=== PATIENT | female | born 1975 | race Caucasian/White ===

== ENCOUNTER 2017-04-01 06:48 | Day surgery (SDC) | payer SELFPAY ==
[~2017-04-01 06:48] MED LIST: DOXYCYCLINE HYCLATE 100 MG TABLET PO PRN; RINGERS SOLUTION,LACTATED 1,000 ML IV PRN
--- OUTSIDE RECORDS SUMMARY | 2017-04-01 06:51 | XMS REPORT | Continuity of Care Document ---
:1975 Author Organization [facility] ([facility]) Address [address] [place] [address] Phone [phone] Support Name Relationship Address Phone Unavailable Unavailable [address] [phone] [place] [address] Care Team Providers Name Role Phone [facility] [id number] Primary Care Provider [phone] Source Comments This disclosure is being made pursuant to the Care Everywhere program, applicable federal and state laws, and may not contain all informaitonavailable regarding this patient.[facility] ([facility]) Active Allergies and Adverse Reactions No Known Allergies Current Medications No known medications Active Problems Not on file Social History Tobacco Use Types Packs/Day Years Used Date Never Assessed Last Filed Vital Signs Vital Sign Reading Time Taken Blood Pressure 127/79 06/10/2010 8:00 AM CDT Pulse 86 06/10/2010 8:00 AM CDT Temperature 36.5 C (97.7 F) 06/10/2010 8:00 AM CDT Respiratory Rate 16 06/10/2010 8:00 AM CDT Height 1.676 m (5' 6") 06/08/2010 11:26 AM CDT Weight 56.7 kg (125 lb) 06/08/2010 11:26 AM CDT Body Mass Index 20.19 06/08/2010 11:26 AM CDT Oxygen Saturation 94% 06/10/2010 8:00 AM CDT Plan of Care Health Maintenance Due Date Last Done Comments Hepatitis B Vaccine (1 of 3 - Primary Series) 1975 Tdap Vaccine 1985 Lipid Disorder Screening 1992 MMR Vaccine 1992 Td Vaccine 1992 Cervical Cancer Screening 2004 Mammogram 2014 Influenza Vaccine: Seasonal (#1) 05/19/2016 Results from Last 3 Months Not on file
--- OUTSIDE RECORDS SUMMARY | 2017-04-01 06:51 | XMS REPORT | Continuity of Care Document ---
:1975 Author Organization [employer] [place] [address] Care Team Providers Name Role Phone Unavailable Primary Care Provider Unavailable Source Comments This disclosure is being made pursuant to the Tier 3 program and maynot contain all information available regarding this patient.[employer] [facility] Active Allergies and Adverse Reactions Not on File Current Medications Be aware that medications may not be up to date as of this document. Alwaysverify current medications with the patient. Not on file Active Problems Not on file Social History Tobacco Use Types Packs/Day Years Used Date Never Assessed Plan of Care Health Maintenance Due Date Last Done Comments Retired-Pertussis Vaccine Adult 1993 Retired-Tetanus Vaccine Adult 1993 Pap Smear 1995 Mammogram 2014 Retired-INFLUENZA VACCINE 06/19/2015 Results from Last 3 Months Not on file
[2017-04-01 07:15] LABS: Hematocrit 39.3 % (37.0-47.0); Hemoglobin 12.5 gm/dL (12.5-16.0); Mean Cell Volume 87.5 fl (78-100); Mean Corpuscular Hemoglobin 27.8 pg (27-31); Mean Corpuscular Hgb Conc 31.8 g/dl (32-36); Mean Platelet Volume 10.6 fl (6.0-9.5); Neutrophil # 2.4 K/mm3 (1.3-6.0); Platelet Count 227 K/mm3 (150-450); Red Blood Count 4.49 M/mm3 (4.2-5.4); Red Cell Distribution Width 14.2 % (11.5-14.0); White Blood Count 4.8 K/mm3 (4.0-10.5)
[2017-04-01] MEDS ORDERED: RINGERS SOLUTION,LACTATED 1,000 ML IV ONE (07:31)
[2017-04-01] MEDS ORDERED: LIDOCAINE HCL/EPINEPHRINE 30 ML VIAL IJ ONE (08:00)
--- NOTE | 2017-04-01 08:52 | OR ---
Operative Report - Dictated Report Narrative: DATE OF PROCEDURE: 04/01/2017 INDICATION: 42 year old with 11 week embryonic demise PREOPERATIVE DIAGNOSIS: 11 week embryonic demise/missed AB POSTOPERATIVE DIAGNOSIS: Same PROCEDURE: Dilation with suction curettage SURGEON: Paula Zuleta D.O. MICROBIOLOGY LABORATORY MANAGER: None ANESTHESIA: IV sedation with local paracervical block ESTIMATED BLOOD LOSS: 100 mL URINE OUTPUT: 200 mL FLUID REPLACEMENT: 400 mL FINDINGS: 13 week size uterus with large amount of products of conception and moderately heavy immediate post procedure bleeding SPECIMEN(S): Products of conception TECHNIQUE: Patient was taken to the operating room and placed in dorsal lithotomy position after adequate IV sedation. The anterior lip of the cervix was grasped with a long Allis clamp and paracervical block was given using 1% lidocaine with epinephrine. Using a combination of Luna and Hegar dilators, the cervix was gently dilated to accommodate a 11 mm suction curette. A 11 mm curved suction curet was inserted through the cervical canal into the uterine cavity. Suction was applied and the products of conception were removed. Brisk bleeding was encountered. A #4 curet was inserted gently field within the uterine cavity to make sure all products of conception were removed. An additional 10 mL of 1% lidocaine was then injected within the cervical canal and uterosacral ligament insertions. Bleeding was then minimal. All instruments were removed from the cervix and vagina. Sponge, lap, instrument, needle count correct x 2. DISPOSITION: The patient was transferred to postanesthesia care unit in good condition.
[2017-04-01] MEDS ORDERED: MORPHINE SULFATE 2 MG/ML DISP.SYRIN IV PRN (08:56)
[2017-04-01] MEDS ORDERED: IBUPROFEN 800 MG TABLET PO PRN (08:57)
[2017-04-01] MEDS ORDERED: oxyCODONE HCL/ACETAMINOPHEN 1 TAB TABLET PO PRN (08:57)
[2017-04-01] MEDS ORDERED: MISOPROSTOL 200 MCG TABLET PO ONE (10:30)
[2017-04-01 16:54] VITALS: BP 110/64
[2017-04-02 12:11] LABS: Hep B Surface Antigen Confirm DNR
[2017-04-02 12:31] LABS: Hepatitis B Surface Antigen NON-REACTIVE (NON-REACTIVE)
== END 2017-04-01 06:49 | disposition home or self-care (01) ==
LOC: AMB 06:48
PROVIDERS: ATTEND Obstetrics & Gynecology
PROC: 10D17ZZ Extraction of Products of Conception, Retained, Via Natural or Artificial Opening (ICD-10-PCS; principal; 2017-04-01 07:55)
DX: O02.1 Missed abortion (principal); F17.200 Nicotine dependence, unspecified, uncomplicated; Z68.25 Body mass index [BMI] 25.0-25.9, adult

== ENCOUNTER 2017-04-06 22:17 | Emergency (ER) | payer OTHER ==
--- NOTE | 2017-04-06 23:19 | ERNOTE ---
ER Female HPI Date of Service: 04/06/17 Stated Complaint: BLEEDING Time Seen by Provider: 04/06/17 23:17 Source: patient Exam Limitations: no limitations Immunizations: IMMUNIZATION HX Immunizations Up to Date Yes History of Influenza Vaccine No Hx Pneumococcal Vaccination No Allergies/Adverse Reactions: Allergies No Known Allergies Allergy (Verified 04/01/17 07:19) Home Medications: HOME MEDICATIONS Docusate Sodium [Colace] 100 mg PO BID 03/31/17 [Last Taken Unknown] Vit#96/Ferrous Fum/FA [ S] 1 tab PO DAILY 03/31/17 [Last Taken Unknown] oxyCODONE HCL/ACETAMINOPHEN [Percocet 5 MG/325 MG] 1 tab PO Q4H PRN #20 tablet 04/01/17 [Last Taken Unknown] - History of Present Illness Narrative: PT COMES FROM [facility] STATING THAT SHE HAS VAGINAL BLEEDING 1 WEEK AFTER HAVING D & C. PT IS G9 P 5 WITH RECENT MISSED THAT RESULTED IN D & C ON 01 APRIL. SHE SAYS THAT SINCE 1799 SHE HAD LARGE CLOTS X 3 IN DIAPERS THAT SHE WAS USING AT [facility] . SHE STATES THAT DR ZAMORA HAD TOLD HER SHE MAY NEED A HYSTERECTOMY. Review of Systems - Review of Systems Constitutional: Present: See HPI Genitourinary: Present: See HPI, other - VAGINAL BLEEDING AFTER D & C. All Other Systems: All systems neg except as marked - Patient's Past Medical History Patient History - Medical: Anemia, Other Patient History - Cardiac/Respiratory: Other Patient History - Cancer: No Hx of Cancer Patient History - Surgical Procedures: Cholecystectomy, D & C, Other Patient History - Other: None - Family History Grandfather-Paternal Family History - Medical: No pertinent hx Family History - Cardiac/Respiratory: No pertinent hx Family History - Cancer: Lung - Social History Living Situations: other Abuse History: No History of abuse Psych History: No pertinent hx Smoking Status: Current every day smoker Patient requests Smoking Cessation Consult: No Initiate information on Smoking Cessation: No Alcohol Use: none Drug Use: other - Immunizations Immunizations Up to Date: Yes Hx Pneumococcal Vaccination: No History of Influenza Vaccine: No Physical Exam - Physical Exam General Appearance: Present: wd/wn, alert, no apparent distress Gastrointestinal/Abdominal: Present: nontender Skin Exam: Present: normal color Pelvic Exam: Present: active bleeding - ONLY MILD BLOOD , EASILY BLOTTED BY 2 LARGE SWABS. NO TEARS . NO CLOTS. ED Progress - Results and Orders Patient's Lab Results:: I have reviewed the patient's lab results. Results and Orders: HGB = 10.6 , WAS 12.5 ON 14TH . PT /INR = NORMAL - Vital Signs Patient's Vital Signs:: I have reviewed the patient's vital signs. Vital Signs: Vital Signs 04/06/17 22:25 Temperature 36.7 C Pulse Rate 74 Respiratory 16 Rate Blood Pressure 132/103 O2 Sat by Pulse 97 Oximetry - CT/Ultrasound CT/Ultrasound Narrative: PELVIC US / ARGUS = "1.9 HETEROGENEOUS THICKENED ENDOMETRIAL STRIPE WITH NO ELEVATION OF BLOOD FLOW THAT MAY BE RETAINED HEMORRHAGE BUT CAN NO EXCLUDE RETAINED PARTS OF CONCEPTION." - Progress/Reassessment Chief Complaint: Genitourinary Problem Plan - Plan Plan: D/W DR DAVENPORT , OB CIGARETTE AND FILTER CHIEF INSPECTOR , AND SHE SUGGESTS AN US TO LOOK FOR RETAINED PRODUCTS. THE US GIVES SUGGESTION THAT THERE MAY STILL BE RETAINED PRODUCTS SO SHE IS GOING TO COME IN TO SEE THE PT. DR Evette DAVENPORT CAME IN TO EXAMINE PT AND IS GOING TO LET HER GO BACK TO [facility] AFTER A METHERGAN IM AND WITH PO 0.2 MG X 10 . PT . IS TO CALL THE OFFICE AND GET APPOINTMENT FOR RECHECK WITH DR ZULETA IN ONE WEEK. Departure Clinical Impression: Postoperative vaginal bleeding following genitourinary procedure - Departure Disposition: Home Follow Up Needed Condition: Good Instructions: Menorrhagia, [id number] Additional Instructions: FOLLOW UP BY CALLING THE OFFICE TO GET RECHECKED IN 1 WEEK. TAKE THE METHERGEN DIRECTED BY DR DAVENPORT. Referrals: Devin Zuleta DO [Primary Care Provider] -
[2017-04-06 23:30] LABS: Hematocrit 33.4 % (37.0-47.0); Hemoglobin 10.6 gm/dL (12.5-16.0); Mean Cell Volume 89.3 fl (78-100); Mean Corpuscular Hemoglobin 28.3 pg (27-31); Mean Corpuscular Hgb Conc 31.7 g/dl (32-36); Mean Platelet Volume 9.9 fl (6.0-9.5); Neutrophil # 4.2 K/mm3 (1.3-6.0); Neutrophil % 63.7 % (42-75.0); Platelet Count 206 K/mm3 (150-450); Red Blood Count 3.74 M/mm3 (4.2-5.4); Red Cell Distribution Width 14.1 % (11.5-14.0); White Blood Count 6.6 K/mm3 (4.0-10.5)
[2017-04-06 23:40] LABS: Prothrombin Time (Patient) 10.2 Seconds (9.4-11.4)
--- OUTSIDE RECORDS SUMMARY | 2017-04-06 23:40 | XMS REPORT | Continuity of Care Document ---
:1975 Author Organization [facility] ([facility]) Address [address] [place] [address] Phone [phone] Support Name Relationship Address Phone Unavailable Unavailable [address] [phone] [place] [address] Care Team Providers Name Role Phone [facility] [id number] Primary Care Provider [phone] Source Comments This disclosure is being made pursuant to the Care Everywhere program, applicable federal and state laws, and may not contain all informaitonavailable regarding this patient.[facility] ([facility]) Active Allergies and Adverse Reactions No Known [...]
--- OUTSIDE RECORDS SUMMARY | 2017-04-06 23:40 | XMS REPORT | Continuity of Care Document ---
:1975 Author Organization [facility] Address [place] [address] Care Team Providers Name Role Phone Unavailable Primary Care Provider Unavailable Source Comments This disclosure is being made pursuant to the [place] program and maynot contain all information available regarding this patient.[facility] Active Allergies and Adverse Reactions Not on [...]
[2017-04-06 23:42] LABS: INR 0.98 INR (0.90-1.10)
[2017-04-07] MEDS ORDERED: METHYLERGONOVINE MALEATE 0.2 MG/ML AMPUL IM ONE (03:21)
--- NOTE | 2017-04-07 03:32 | PN ---
Progess Note - Interim Narrative: 04/07/17 03:27 42y/o female patient of Dr. Zuleta presented to ER earlier this evening c/o heavy vaginal bleeding with cramping between 1800 and 2200, soaking 3 pads. Since arrival bleeding has been minimal. She has a history of undergoing suction D&C on 04/01/[address] Zuleta for 11 week demise. His operative report notes fairly brisk bleeding following the procedure and patient was released on p.o. misoprostol three times daily for 2 days. She is currently incarcerated for probation violation and this was administered in penitentiary. Other meds include [place], motrin and bactrim. O: P60-70's BP BP 107/71, T37.6 H&H 10.6/33.3 In general this is a well developed white female in no distress. Skin is warm and dry. Abdomen is soft and nontender. Speculum exam shows small amt of blood from cervical os with no heavy bleeding and oss is closed. Uterus is 6-8 week size and globular. Sono was obtained and there is no free fluid or adnexal masses. The endometrial stripe is heterogeneous and thickened at 1.9cm with no flow. This could represent a small amt retained tissue but more likely is clotted blood. A; Heavy vaginal bleeding 5 days s/p D&C for demise, now resolved. Hemodynamically stable. P; One dose of methergine 02.mg IM here in ER. RX for methergine 0.2mg p.o x3 days. F/u with DR. Zuleta in office within one week. Return if recurrence of heavy bleeding. 04/07/17 03:33 04/07/17 03:33
[2017-04-07] MEDS ORDERED: METHYLERGONOVINE MALEATE 0.2 MG/ML AMPUL ONE (03:38)
[2017-04-07 03:47] VITALS: BP 127/74
== END 2017-04-07 04:02 ==
LOC: ER 22:17
DX: N99.820 Postprocedural hemorrhage of a genitourinary system organ or structure following a genitourinary system procedure (principal); F17.200 Nicotine dependence, unspecified, uncomplicated

== ENCOUNTER 2020-05-16 02:38 | Inpatient (IN) ==
[2020-05-16] MEDS ORDERED: ONDANSETRON HCL/PF 2 MG/ML VIAL IV ONE (03:15)
[2020-05-16] MEDS ORDERED: NORMAL SALINE 1,000 ML IV ONE (03:16)
[2020-05-16 03:19] LABS: Hematocrit 39.4 % (37.0-47.0); Hemoglobin 11.7 gm/dL (12.5-16.0); Mean Cell Volume 87.8 fl (78-100); Mean Corpuscular Hemoglobin 26.1 pg (27-31); Mean Corpuscular Hgb Conc 29.7 g/dl (32-36); Mean Platelet Volume 10.1 fl (8-12.5); Neutrophil % 64.2 % (42-75.0); Platelet Count 287 K/mm3 (150-450); Red Blood Count 4.49 M/mm3 (4.2-5.4); Red Cell Distribution Width 15.9 % (11.5-14.0); White Blood Count 6.2 K/mm3 (4.0-10.5)
--- NOTE | 2020-05-16 03:20 | ERNOTE ---
Abdominal HPI - General Chief Complaint: Abdominal Pain Time Seen by Provider: 05/16/20 03:11 Source: patient Exam Limitations: no limitations - Immun/Allergies/Home Medications Immunizatons: IMMUNIZATION HX Immunizations Up to Date Yes History of Influenza Vaccine Yes Hx Pneumococcal Vaccination No Allergies/Adverse Reactions: Allergies No Known Allergies Allergy (Verified 05/16/20 03:00) - History of Present Illness Narrative: Patient states approximately 1400 yesterday afternoon she began having some epigastric abdominal pain after eating some fajitas. She thought it would go away she laid down she did other things sparse positioning and activity and to continue to bother her and tonight kept her up from sleeping and began to radiate around her her back like a band. Timing: getting worse Quality: moderate, fullness Review of Systems - Review of Systems Constitutional: Absent: recent illness Respiratory: Absent: shortness of breath, cough Cardiology: Absent: chest pain Gastrointestinal/Abdominal: Present: See HPI, nausea, abdominal pain. Absent: vomiting, diarrhea Musculoskeletal: Present: See HPI, back pain Skin: Absent: rash Endocrine: Absent: excessive sweating Medical History (Last Reviewed 05/16/20 @ 03:19 by Osbaldo Benitez DO) Cholelithiasis Miscarriage Surgical History: Surgical History (Last Reviewed 05/16/20 @ 03:19 by Osbaldo Benitez DO) Hx laparoscopic cholecystectomy Hx of dilation and curettage Social History: (Last Reviewed 05/16/20 @ 03:19 by Osbaldo Benitez DO) Social History: adopted: No foster care: No lives independently: Yes number of children: 1 Tobacco: Smoking Status: Current every day smoker Physical Exam - Physical Exam General Appearance: Present: wd/wn, alert, mild distress Head Exam: Present: normal inspection, no evidence of injury Neck: Present: normal inspection, nontender, supple Respiratory: Present: no respiratory distress, no accessory muscle use, chest nontender, lungs clear Cardiovascular/Chest: Present: regular rate, rhythm, no murmur Gastrointestinal/Abdominal: Present: normal bowel sounds, soft, tenderness - Mid right abdomen to right upper quadrant and mid central abdomen to epigastric. Absent: distended, guarding, rebound Back Exam: Present: normal inspection, normal range of motion, no CVA tenderness Extremity Exam: Present: normal inspection, normal range of motion, no edema Neurological Exam: Present: alert, oriented, normal mood/affect, no motor/sensory deficits Skin Exam: Present: normal color, warm/dry Lymphatic Exam: Present: no adenopathy Progress - Results and Orders Patient's Lab Results:: I have reviewed the patient's lab results. Results and Orders: Laboratory Tests 05/16/20 05/16/20 05/16/20 03:15 03:16 03:50 WBC 6.2 Hgb 11.7 L Hct 39.4 Plt Count 287 Sodium 140 Potassium 3.9 Chloride 105 Carbon Dioxide 26.1 BUN 13 Creatinine 0.73 Random Glucose 112 H Calcium 8.5 Total Bilirubin 0.6 AST 21 ALT 25 Amylase 696 H Lipase 6967 H Urine Color Yellow Urine Appearance Clear Ur Specific [place] 1.025 Urine Blood Negative Urine Nitrate Negative Ur Leukocyte Esterase Negative - Vital Signs Patient's Vital Signs:: I have reviewed the patient's vital signs. Vital Signs: Vital Signs 05/16/20 02:44 Temperature 36.4 C Pulse Rate 77 Respiratory Rate 18 Blood Pressure 175/94 H O2 Sat by Pulse Oximetry 98 - X-Ray X-Ray #1 X-Ray: abdomen Interpretation: Interp. by me X-ray Comments: Moderate stool retention. No air-fluid levels, no free air. No evidence of obstruction - Progress/Reassessment Chief Complaint: Abdominal Pain Progress Note-Subjective: 05/16/20 07:[address] Fox he agrees with inpatient admission IV fluids and pain control and antinausea medications. Departure Clinical Impression: Pancreatitis Qualifiers: Chronicity: acute Pancreatitis type: unspecified pancreatitis type Acute pancreatitis complication: no infection or necrosis Qualified Code(s): K85.90 - Acute pancreatitis without necrosis or infection, unspecified - Departure Disposition: Still a patient Condition: Good Referrals: Devin Zuleta DO [Primary Care Provider] -
[2020-05-16] MEDS ORDERED: LIDOCAINE HCL 15 ML UDC MM ONE (03:25)
[2020-05-16] MEDS ORDERED: MAG HYDROX/ALUMINUM HYD/SIMETH 30 ML UDC PO ONE (03:25)
[2020-05-16] MEDS ORDERED: SUCRALFATE 1 G/10 ML UDC PO ONE (03:25)
[2020-05-16 03:31] LABS: Albumin * 3.6 gm/dl (3.4-5.0); Anion Gap 12.8 mmol/L (6.8-13.8); BUN/Creatinine Ratio 17.8 (9.0-21.6); Bilirubin, Total 0.6 mg/dL (0.0-1.1); Ca. Corrected For Albumin 8.5 mg/dL (8.4-10.2); Calcium * 8.5 mg/dL (7.9-10.9); Carbon Dioxide 26.1 mmol/L (24-32.6); Potassium 3.9 mmol/L (3.4-4.6); Total Protein 6.7 gm/dL (6.2-8.2)
[2020-05-16] MEDS ORDERED: DIATRIZOATE MEGLUMINE, SODIUM 30 ML BTL PO ONE (03:53)
[2020-05-16] MEDS ORDERED: MORPHINE SULFATE 2 MG/ML DISP.SYRIN IV ONE (03:56)
[2020-05-16 04:00] LABS: Urine Bilirubin Negative (NEGATIVE); Urine Blood Negative /ul (NEGATIVE); Urine Ketone Negative (NEGATIVE); Urine Nitrite Negative (NEGATIVE); Urine Protein Negative (NEGATIVE); Urine Specific Gravity 1.025 SP.GR. (1.005-1.010); Urine Urobilinogen Normal (NORMAL); Urine pH 6.5 pH (5.0-7.0)
[2020-05-16 04:09] LABS: Urine Appearance Clear (CLEAR); Urine Bacteria None Seen; Urine Color Yellow; Urine RBC None Seen /hpf (0-5); Urine WBC None Seen /hpf (0-5)
[2020-05-16] MEDS ORDERED: MORPHINE SULFATE 4 MG/ML SYRG IV PRN (07:25)
[2020-05-16] MEDS: NORMAL SALINE 1,000 ML IV PRN ×3 (11:53→21:58)
[2020-05-16] MEDS ORDERED: MORPHINE SULFATE 2 MG/ML DISP.SYRIN IV PRN (13:05)
[2020-05-16] MEDS: ACETAMINOPHEN 500 MG TABLET PO PRN ×2 (15:02→23:40)
--- NOTE | 2020-05-16 18:05 | HP ---
Chief Complaint - Chief Complaint Date of Service: 05/16/20 Time of Service: 17:53 Chief Complaint: abdominal pain History of Present Illness: 45-year-old female with no real pertinent past medical history aside from gallbladder disease where she did have her gallbladder removed presented to the ER after 1 day of fairly intense abdominal pain. She was nauseated without vomiting. States that she had ate the day before some fajitas and some cobbler when she started having abdominal pain, thought it would go away on its own but it did not. This is when she presented to the ER. Initial work-up was positive for likely pancreatitis as she had a lipase of 7000 but no real other pertinent lab findings. Chest x-ray and abdominal x-ray were negative. Normal white count. Normal liver enzymes. Normal bili. Patient was admitted for hydration and pain control. She was transferred to the floor as an inpatient. Her vital signs been stable. Today when seen patient is feeling a lot better this evening and is willing to try clears which was ordered for her. Advised that she need to take her diet slow and will reevaluate in morning. Medical History (Last Reviewed 05/16/20 @ 07:36 by Steven Paiz RN) Cholelithiasis Miscarriage Surgical History: Surgical History (Last Reviewed 05/16/20 @ 07:36 by Steven Paiz RN) Hx laparoscopic cholecystectomy Hx of dilation and curettage Social History: (Last Reviewed 05/16/20 @ 07:37 by Steven Paiz RN) Social History: adopted: No foster care: No Marital status: Life Partner lives independently: Yes number of children: 5 parent marital status: umarried, living together Tobacco: Smoking Status: Former smoker Alcohol: alcohol intake: never Review Of Systems (GEN) - Review of Systems EENTM: Present: No Symptoms Reported Respiratory: Present: No Symptoms Reported Cardiac: Present: No Symptoms Reported Abdominal: Present: Abdominal Pain - improving. Absent: Nausea, Vomiting Genitourinary: Absent: Burning, Urgency, Frequency Musculoskeletal: Present: No Symptoms Reported Neurological: Present: No Symptoms Reported Skin: Present: No Symptoms Reported Endocrine: Present: No Symptoms Reported Immunizations: IMMUNIZATION HX Immunizations Up to Date Yes History of Influenza Vaccine Yes Hx Pneumococcal Vaccination No Allergies/Adverse Reactions: Allergies Allergy/AdvReac Type Severity Reaction Status Date / Time No Known Allergies Allergy Verified 05/16/20 07:37 Exam - Exam Vital Signs: Vital Signs - Last Taken Temp 36.7 C 05/16/20 15:29 Pulse 88 05/16/20 15:29 Resp 16 05/16/20 15:29 BP 133/74 05/16/20 15:29 Pulse Ox 98 05/16/20 15:29 Constitutional: Present: Alert, Oriented x3, Cooperative, Well developed ENT Exam: Absent: nasal congestion, nasal drainage Eye Exam: bilateral eye: normal inspection, EOMI Back Exam: Present: no CVA tenderness Respiratory: Present: lungs clear, normal breath sounds, no respiratory distress Cardiovascular/Chest: Present: regular rate, rhythm, no edema Abdomen: Present: Normal bowel sounds, soft, tender - mildly tender RUQ. Absent: firm /Rectal: Present: Exam deferred Skin Exam: Present: normal color, warm/dry Appearance: Present: appropriate appearance, appropriate insight Thoughts: Present: normal thought pattern, normal mood /affect Diagnostic Studies: Abnormal Lab Results 05/16/20 05/16/20 Range/Units 03:15 03:16 Hgb 11.7 L (12.5-16.0) gm/dL MCH 26.1 L (27-31) pg MCHC 29.7 L (32-36) g/dl RDW 15.9 H (11.5-14.0) % Immature Gran % (Auto) 0.50 H (0.001-0.429) % Eosinophils % 5.2 H (0.0-3.0) % Lymphocytes # 1.31 L (1.5-3.5) k/mm3 Random Glucose 112 H (70-110) mg/dL Amylase 696 H (25-115) U/L Lipase 6967 H (73-393) U/L Laboratory Results WBC 6.2 K/mm3 (4.0-10.5) 05/16/20 03:15 RBC 4.49 M/mm3 (4.2-5.4) 05/16/20 03:15 Hgb 11.7 gm/dL (12.5-16.0) L 05/16/20 03:15 Hct 39.4 % (37.0-47.0) 05/16/20 03:15 MCV 87.8 fl (78-100) 05/16/20 03:15 MCH 26.1 pg (27-31) L 05/16/20 03:15 MCHC 29.7 g/dl (32-36) L 05/16/20 03:15 RDW 15.9 % (11.5-14.0) H 05/16/20 03:15 Plt Count 287 K/mm3 (150-450) 05/16/20 03:15 MPV 10.1 fl (8-12.5) 05/16/20 03:15 Immature Gran % (Auto) 0.50 % (0.001-0.429) H 05/16/20 03:15 Immature Gran # (Auto) 0.03 K/mm3 (0.000-0.0310) 05/16/20 03:15 Neutrophils % 64.2 % (42-75.0) 05/16/20 03:15 Lymphocytes % 21.2 % (20-51) 05/16/20 03:15 Monocytes % 8.1 % (0.0-9) 05/16/20 03:15 Eosinophils % 5.2 % (0.0-3.0) H 05/16/20 03:15 Basophils % 0.8 % (0.0-1.0) 05/16/20 03:15 Nucleated RBC % 0.0 k/mm3 (0-1) 05/16/20 03:15 Neutrophils # 4.0 K/mm3 (1.3-6.0) 05/16/20 03:15 Lymphocytes # 1.31 k/mm3 (1.5-3.5) L 05/16/20 03:15 Monocytes # 0.5 k/mm3 (0.0-1.0) 05/16/20 03:15 Eosinophils # 0.3 k/mm3 (0.0-0.7) 05/16/20 03:15 Absolute Basophils 0.1 k/mm3 (0.0-0.1) 05/16/20 03:15 Sodium 140 mmol/L (132-142) 05/16/20 03:16 Plasma Sodium 140 mmol/L (130-142) 05/16/20 03:16 Potassium 3.9 mmol/L (3.4-4.6) 05/16/20 03:16 Chloride 105 mmol/L (97-106) 05/16/20 03:16 Carbon Dioxide 26.1 mmol/L (24-32.6) 05/16/20 03:16 Anion Gap 12.8 mmol/L (6.8-13.8) 05/16/20 03:16 BUN 13 mg/dL (3-23) 05/16/20 03:16 Creatinine 0.73 mg/dL (0.4-1.4) 05/16/20 03:16 Est GFR (Non-Af Amer) 91 mL/min (60-130) D 05/16/20 03:16 BUN/Creatinine Ratio 17.8 (9.0-21.6) 05/16/20 03:16 Random Glucose 112 mg/dL (70-110) H 05/16/20 03:16 Calcium 8.5 mg/dL (7.9-10.9) 05/16/20 03:16 Calcium Adj for Albumin 8.5 mg/dL (8.4-10.2) 05/16/20 03:16 Total Bilirubin 0.6 mg/dL (0.0-1.1) 05/16/20 03:16 AST 21 U/L (0-48) 05/16/20 03:16 ALT 25 U/L (19-67) 05/16/20 03:16 Alkaline Phosphatase 95 U/L (50-170) 05/16/20 03:16 Total Protein 6.7 gm/dL (6.2-8.2) 05/16/20 03:16 Albumin 3.6 gm/dl (3.4-5.0) 05/16/20 03:16 Amylase 696 U/L (25-115) H 05/16/20 03:16 Lipase 6967 U/L (73-393) H 05/16/20 03:16 Urine Color Yellow 05/16/20 03:50 Urine Appearance Clear (CLEAR) 05/16/20 03:50 Urine pH 6.5 pH (5.0-7.0) 05/16/20 03:50 Ur Specific [place] 1.025 SP.GR. (1.005-1.010) 05/16/20 03:50 Urine Protein Negative mg/dL (NEGATIVE) 05/16/20 03:50 Urine Glucose (UA) Negative mg/dL (NEGATIVE) 05/16/20 03:50 Urine Ketones Negative mg/dL (NEGATIVE) 05/16/20 03:50 Urine Blood Negative /ul (NEGATIVE) 05/16/20 03:50 Urine Nitrate Negative (NEGATIVE) 05/16/20 03:50 Urine Bilirubin Negative mg/dl (NEGATIVE) 05/16/20 03:50 Urine Urobilinogen Normal EU/dl (NORMAL) 05/16/20 03:50 Ur Leukocyte Esterase Negative /ul (NEGATIVE) 05/16/20 03:50 Urine RBC None seen /hpf (0-5) 05/16/20 03:50 Urine WBC None seen /hpf (0-5) 05/16/20 03:50 Ur Epithelial Cells None seen /hpf (0-5) 05/16/20 03:50 Urine Bacteria None seen (NONE) 05/16/20 03:50 Urine Culture Comments No culture indicated 05/16/20 03:50 Assessment/Plan - Narrative Narrative: 45-year-old female admitted to [facility] floor as an inpatient for acute pancreatitis. Unknown cause. Patient denies large amounts of alcohol ingestion. Patient has had a cholecystectomy. Continue normal saline at 200 cc. Morphine 2 mg every 2 hours PRN ordered. Will advance her diet tonight, clears ordered and again advised patient take it slow. Her vital signs are stable and she is afebrile. SCDs to be worn while patient is in bed. Nurse to call questions or concerns. - Assessment/Plan (1) Pancreatitis Problem: Acute Qualifiers: Chronicity: acute Pancreatitis type: unspecified pancreatitis type Acute pancreatitis complication: no infection or necrosis Qualified Code(s): K85.90 - Acute pancreatitis without necrosis or infection, unspecified
[2020-05-17] MEDS: NORMAL SALINE 1,000 ML IV PRN ×3 (03:05→13:34)
[2020-05-17] MEDS: ACETAMINOPHEN 500 MG TABLET PO PRN (08:33)
--- NOTE | 2020-05-17 15:52 | DS ---
(1) Pancreatitis Problem: Acute Qualifiers: Chronicity: acute Pancreatitis type: unspecified pancreatitis type Acute pancreatitis complication: no infection or necrosis Qualified Code(s): K85.90 - Acute pancreatitis without necrosis or infection, unspecified Date of Discharge:: 05/17/20 Hospital Course: 45-year-old female with no real past medical history admitted to the hospital as an inpatient for acute pancreatitis. Unknown cause. Patient while here improved significantly. Lab work was fairly unremarkable aside from her elevated lipase at just under 7000, otherwise no other acute abnormalities identified. Abdominal x-ray was unremarkable. Patient's vital signs are stable while here. No repeat lab work needed. Patient's pain is well controlled with 2 mg of morphine given sparingly. Last dose was given roughly 20 hours earlier, she has not required any since. She is been able to advance her diet initially from clears to regular without any abdominal discomfort. Patient discharged in stable condition. Patient discharged without any medications as she was on any prior to this episode. Patient to follow-up with her PCP in the next 1 to 2 weeks, she is able to follow with me if needed. Procedures Performed: none Results and Findings: Lab Pending Results 05/16/20 03:15: WBC 6.2, RBC 4.49, Hgb 11.7 L, Hct 39.4, MCV 87.8, MCH 26.1 L, MCHC 29.7 L, RDW 15.9 H, Plt Count 287, MPV 10.1, Immature Gran % (Auto) 0.50 H, Immature Gran # (Auto) 0.03, Neutrophils % 64.2, Lymphocytes % 21.2, Monocytes % 8.1, Eosinophils % 5.2 H, Basophils % 0.8, Nucleated RBC % 0.0, Neutrophils # 4.0, Lymphocytes # 1.31 L, Monocytes # 0.5, Eosinophils # 0.3, Absolute Basophils 0.1 05/16/20 03:16: Sodium 140, Plasma Sodium 140, Potassium 3.9, Chloride 105, Carbon Dioxide 26.1, Anion Gap 12.8, BUN 13, Creatinine 0.73, Est GFR (Non-Af Amer) 91 D, BUN/Creatinine Ratio 17.8, Random Glucose 112 H, Calcium 8.5, Calcium Adj for Albumin 8.5, Total Bilirubin 0.6, AST 21, ALT 25, Alkaline Phosphatase 95, Total Protein 6.7, Albumin 3.6, Amylase 696 H, Lipase 6967 H 05/16/20 03:50: Urine Color Yellow, Urine Appearance Clear, Urine pH 6.5, Ur Specific Fowler 1.025, Urine Protein Negative, Urine Glucose (UA) Negative, Urine Ketones Negative, Urine Blood Negative, Urine Nitrate Negative, Urine Bilirubin Negative, Urine Urobilinogen Normal, Ur Leukocyte Esterase Negative, Urine RBC None seen, Urine WBC None seen, Ur Epithelial Cells None seen, Urine Bacteria None seen, Urine Culture Comments No culture indicated Discharge Location: Home Disposition: Home self-care Condition: Good Discharge Activity: Activity as tolerated Discharge Diet: General/regular food Referrals: Devin Zuleta DO [Primary Care Provider] -
[2020-05-17 18:50] VITALS: BP 151/92
== END 2020-05-17 16:45 | disposition home or self-care (01) | DRG 440 ==
LOC: ER 02:38 → MS 07:14
PROVIDERS: ADMIT Family Medicine; ATTEND Family Medicine
CPT/HCPCS: 36415; 74019; 74020; 74177; 80053; 81001; 82150; 83690; 85025; 96361; 96374; 96375; 99283; 99285; J2405; Q9963; Q9967